=== PATIENT | male | born 1950 | race Caucasian/White ===

== ENCOUNTER 2018-03-23 00:59 | Emergency (ER) | payer OTHER ==
[~2018-03-23] VITALS: Ht 175.3 cm; Wt 108.6 kg
[~2018-03-23 00:59] MED LIST: AMLO2.5T78 PO; ASPI81TA52 PO; ATOR20TA38 PO; LANS15CA5 PO; NAPR-688 PO
[2018-03-23 01:09] VITALS: Ht 175.3 cm; Wt 108.6 kg
[2018-03-23] MEDS ORDERED: IOHEXOL 300MG/ML 150 ML BTL ONE (02:33)
[2018-03-23] MEDS ORDERED: SOD CHLORIDE 0.9% 100 ML ONE (02:33)
[2018-03-23] MEDS ORDERED: OMEG-135 PO (03:01)
[2018-03-23] MEDS ORDERED: MULTI PO (03:01)
[2018-03-23 05:47] VITALS: BP 140/91; PULSE 77; RESP 16
--- NOTE | 2018-04-17 02:06 | ERD ---
ER Documentation Chief Complaint Chief Complaint left inguinal hernia surgery 2 days ago, c/o pain and penile swelling HPI This is a 67-year-old male with left inguinal hernia surgery 2 days ago with complaints of pain and swelling in his groin region. He denies fevers chills nausea vomiting. Pain is mild to moderate intensity no exacerbating alleviating factors. ROS All systems reviewed and are negative except as per history of present illness. Medications Home Meds Reported Medications Multivitamins* (Theragran*) 1 Tab Tab, 1 TAB PO DAILY, TAB 03/23/18 Cable-3 Fatty Acids/Fish Oil (Fish Oil 1,000 mg Capsule) 1 Each Capsule, 1 EACH PO DAILY, CAP 03/23/18 Naproxen* (Naproxen*) 500 Mg Tablet, 500 MG PO BID PRN for PAIN AND/OR INFLAMMATION, TAB 03/20/18 Lansoprazole* (Lansoprazole*) 15 Mg Capsule.dr, 15 MG PO BID, CAP 03/20/18 Aspirin (Low Dose Aspirin) 81 Mg Tablet.dr, 81 MG PO DAILY, #30 TAB 03/20/18 Atorvastatin Calcium* (Atorvastatin Calcium*) 20 Mg Tablet, 20 MG PO QHS, #30 TAB 03/20/18 Amlodipine Besylate* (Amlodipine Besylate*) 2.5 Mg Tablet, 2.5 MG PO DAILY, #30 TAB 03/20/18 Allergies Allergies: Coded Allergies: No Known Drug Allergies (Unverified Allergy, Unknown, 03/23/18) PMhx/Soc History of Surgery: Yes (X2 RT. KNEE,X1 LEFT KNEE,X2 INGUINAL HERNIA,RT. FOOT) Anesthesia Reaction: No Hx Neurological Disorder: No Hx Respiratory Disorders: No Hx Cardiac Disorders: No Hx Psychiatric Problems: No Hx Miscellaneous Medical Probl: Yes (HTN) Hx Alcohol Use: Yes (OCC.) Hx Substance Use: No Hx Tobacco Use: No Smoking Status: Never smoker Physical Exam Physical Exam Const: No acute distress Head: Atraumatic Eyes: Normal Conjunctiva ENT: Normal External Ears, Nose and Mouth. Neck: Full range of motion. No meningismus. Resp: Clear to auscultation bilaterally Cardio: Regular rate and rhythm, no murmurs Abd: Soft, non tender, non distended. Normal bowel sounds Skin: No petechiae or rashes Back: No midline or flank tenderness Ext: No cyanosis, or edema Neur: Awake and alert Psych: Normal Mood and Affect Results 24 hrs Laboratory Tests Test 03/23/18 01:57 White Blood Count 9.5 10^3/ul Red Blood Count 4.61 10^6/ul Hemoglobin 14.4 g/dl Hematocrit 44.7 % Mean Corpuscular Volume 97.0 fl Mean Corpuscular Hemoglobin 31.2 pg Mean Corpuscular Hemoglobin Concent 32.2 g/dl Red Cell Distribution Width 13.3 % Platelet Count 208 10^3/UL Mean Platelet Volume 9.8 fl Immature Granulocytes % 0.400 % Neutrophils % 75.9 % Lymphocytes % 12.2 % Monocytes % 8.8 % Eosinophils % 2.5 % Basophils % 0.2 % Nucleated Red Blood Cells % 0.0 /100WBC Immature Granulocytes # 0.040 10^3/ul Neutrophils # 7.2 10^3/ul Lymphocytes # 1.2 10^3/ul Monocytes # 0.8 10^3/ul Eosinophils # 0.2 10^3/ul Basophils # 0.0 10^3/ul Nucleated Red Blood Cells # 0.0 10^3/ul Sodium Level 140 mmol/L Potassium Level 4.2 mmol/L Chloride Level 103 mmol/L Carbon Dioxide Level 29 mmol/L Anion Gap 8 Blood Urea Nitrogen 16 mg/dl Creatinine 0.78 mg/dl Est Glomerular Filtrat Rate mL/min > 60 mL/min Glucose Level 104 mg/dl Calcium Level 9.6 mg/dl Total Bilirubin 0.4 mg/dl Direct Bilirubin 0.00 mg/dl Indirect Bilirubin 0.4 mg/dl Aspartate Amino Transf (AST/SGOT) 28 IU/L Alanine Aminotransferase (ALT/SGPT) 17 IU/L Alkaline Phosphatase 53 IU/L Total Protein 7.5 g/dl Albumin 4.3 g/dl Globulin 3.20 g/dl Albumin/Globulin Ratio 1.34 Current Medications Medications Dose Sig/Lewis Start Time Status Last (Trade) Ordered Route PRN Stop Time Admin Dose Reason Admin IV Flush 10 ml STK-MED 03/23/18 DC 03/23/18 (NS 10 ml) ONCE .ROUTE 02:33 02:56 03/23/18 02:34 Sodium 100 ml @ ud STK-MED 03/23/18 DC 03/23/18 Chloride ONCE .ROUTE 02:33 02:56 03/23/18 02:34 Iohexol 150 ml STK-MED 03/23/18 DC 03/23/18 (Omnipaque ONCE .ROUTE 02:33 02:55 300mg/ ml) 03/23/18 02:34 Procedures/MDM Medical decision makin-year-old male with essentially postoperative complications and pain. No evidence of cellulitis or abscess on CT. Stable for outpatient management. Follow with PCP. Return for worsening symptoms. Departure Diagnosis: Primary Impression: Postoperative complication Surgical complication system/body Area: skin Surgical complication type: seroma Procedure type: non-dermatologic Qualified Codes: L76.34 - Postprocedural seroma of skin and subcutaneous tissue following other procedure Condition: Stable Patient Instructions: Post Op Wound Check, General CARLITOS ALLEN Apr 17, 2018 02:06
== END 2018-03-23 06:02 | disposition home or self-care (01) ==
LOC: E/R 00:59
DX: L76.34 Postprocedural seroma of skin and subcutaneous tissue following other procedure (principal); I10 Essential (primary) hypertension; Z79.82 Long term (current) use of aspirin
CPT/HCPCS: 74177; 80053; 85025; Q9967